=== PATIENT | female | born 1975 | race Caucasian/White ===

== ENCOUNTER 2019-11-01 00:30 | Inpatient (IN) | payer OTHER ==
[~2019-11-01 00:30] MED LIST: CITRIC ACID/SODIUM CITRATE 30 ML UNIT-DOSE CUP PO ONE; ELECTROLYTE-148 SOLN 500 ML IV ONE
[2019-11-01] MEDS ORDERED: OXYTOCIN 20 UNITS in 0.9% NS 20 UNIT/1,000 ML INFUS.BAG IV ONE ×2 (02:44→08:45)
[2019-11-01] MEDS ORDERED: morphine SULFATE/PF 0.5 MG/ML (2cc Syringe - QUVA) ONE (02:47)
[2019-11-01] MEDS ORDERED: SODIUM CHLORIDE 0.9% P/F 10 ML VIAL IJ ONE (02:59)
[2019-11-01] MEDS ORDERED: ceFAZolin SODIUM 1 GM VIAL ONE (02:59)
--- NOTE | 2019-11-01 03:01 | HP ---
Past Medical History - Primary Care Physician PCP:: Storm Simon - Admission Chief Complaint: 40 weeks, previous c/s . labor , sterlization, AMA History of Present Illness: 44 yo f g 2 p1001 40 weeks with previous c/s in labor , requesting repeat c/s and BTL ,risks associated with repeat c/s and BTL has discussed with patient History Source: Patient Limitations to Obtaining History: No Limitations - Past Medical History ...: 2 ...Para: 1 ... Weeks Gestation by Dates: 40 ...EDC by Sono: 11/01/19 - Past Surgical History Past Surgical History: Yes: Hx Myomectomy: No Hx Transabdominal Cerclage: No - Smoking History Smoking history: Never smoked - Alcohol/Substance Use Hx Alcohol Use: No History of Substance Use: reports: None - Social History Usual Living Arrangement: Yes: With Spouse History of Recent Travel: No Home Medications - Allergies Allergies/Adverse Reactions: Allergies Allergy/AdvReac Type Severity Reaction Status Date / Time No Known Allergies Allergy Verified 03/14/12 12:19 - Home Medications Home Medications: Ambulatory Orders -1 Capsule 1 tab PO DAILY 03/14/12 Acetaminophen [Tylenol .Regular Strength -] 650 mg PO Q4H PRN #0 tablet Ibuprofen [Motrin -] 600 mg PO Q4H PRN #0 tablet 03/19/12 Review of Systems - Review of Systems Constitutional: reports: No Symptoms Eyes: reports: No Symptoms HENT: reports: No Symptoms Neck: reports: No Symptoms Cardiovascular: reports: No Symptoms Respiratory: reports: No Symptoms Gastrointestinal: reports: No Symptoms Genitourinary: reports: No Symptoms Breasts: reports: No Symptoms Reported Musculoskeletal: reports: No Symptoms Integumentary: reports: No Symptoms Neurological: reports: No Symptoms Endocrine: reports: No Symptoms Hematology/Lymphatic: reports: No Symptoms Psychiatric: reports: No Symptoms Physical Exam - Maternity Vital Signs: Vital Signs Temperature 98.1 F 11/01/19 01:54 Pulse Rate 78 11/01/19 01:54 Respiratory Rate 20 11/01/19 01:54 Blood Pressure 131/77 11/01/19 01:54 O2 Sat by Pulse Oximetry (%) Constitutional: Yes: Well Nourished, No Distress, Calm Eyes: Yes: WNL, Conjunctiva Clear, EOM Intact HENT: Yes: WNL, Atraumatic, Normocephalic Neck: Yes: WNL, Supple, Trachea Midline Cardiovascular: Yes: WNL, Regular Rate and Rhythm Breast(s): Yes: WNL - Abdominal Exam/OB Fundal Height: 40 Number of Fetuses: Single Presentation: Vertex Contractions: Yes Regularity: Regular Intensity: Mod/Strong Monitor Mode: External Heart Rate Location: [facility] Category: I Accelerations: Non-Uniform Decelerations: None - Vaginal Exam/OB Amniotic Membrane Status: Intact Presentation: Vertex/Position - Physical Exam Musculoskeletal: Yes: WNL Extremities: Yes: WNL Edema: Yes Edema: LLE: Trace, RLE: Trace Deep Tendon Reflex Grade: Normal +2 ...Motor Strength: WNL Psychiatric: Yes: WNL Hemorrhage Risk Assessment - Risk Factors Medium Risk Factors: Yes: Prior , uterine surgery,or multiple laparotomies Risk Score: 1 Risk Level: Medium Risk Problem List - Problems (1) 40 weeks gestation of Code(s): Z3A.40 - 40 WEEKS GESTATION OF (2) Labor established Code(s): YVF4462 - (3) Advanced maternal age (AMA) in Code(s): BDY8013 - (4) Admission for sterilization Code(s): Z30.2 - ENCOUNTER FOR STERILIZATION Assessment/Plan repeat c/s ,BTL
[2019-11-01] MEDS ORDERED: OXYTOCIN 10 UNITS/ML VIAL ONE (03:31)
[2019-11-01] MEDS ORDERED: MIDAZOLAM HCL 2 MG/2 ML SINGLE DOSE VIAL ONE (03:31)
[2019-11-01] MEDS ORDERED: KETOROLAC TROMETHAMINE 30 MG/1 ML VIAL ONE (03:32)
[2019-11-01] MEDS ORDERED: ONDANSETRON 4 MG/2 ML VIAL IVPUSH PRN (03:48)
[2019-11-01] MEDS ORDERED: oxyCODONE HCL 5 MG TABLET PO PRN ×2 (04:17)
[2019-11-01] MEDS ORDERED: diphenhydrAMINE HCL 25 MG CAPSULE (FP) PO PRN (04:17)
[2019-11-01] MEDS ORDERED: IBUPROFEN 800 MG/8 ML IJ IVPB PRN (04:17)
[2019-11-01] MEDS ORDERED: BENZOCAINE 28 GM HEMORRHOIDAL OINTMENT PR PRN (04:17)
[2019-11-01] MEDS ORDERED: WITCH HAZEL 50% (TUCKS) 40 PAD/JAR PAD TP PRN (04:17)
[2019-11-01] MEDS ORDERED: IBUPROFEN 600 MG TABLET (FP) PO PRN (04:17)
[2019-11-01] MEDS ORDERED: BENZOCAINE 20% 57 GM BOTTLE TP PRN (04:17)
[2019-11-01] MEDS ORDERED: METHYLERGONOVINE MALEATE 0.2 MG/1 ML AMP IM PRN (04:17)
[2019-11-01] MEDS ORDERED: OXYTOCIN 20 UNITS in 0.9% NS 20 UNIT/1,000 ML INFUS.BAG IV SCH (04:30)
--- NOTE | 2019-11-01 04:33 | OP ---
Operative Note - Note: Operative Date: 11/01/19 Pre-Operative Diagnosis: 40 weeks ,previous c/s, labor , AMA, sterlization Operation: repeat LST c/s, RT salpingectomy Findings: live baby boy 9, mecomium stain af , LT tube and ovary not seen Surgeon: Storm Simon Printing Grey Cloth Tender: Mau Skaggs Anesthesiologist/TEST FIXTURE DESIGNER: Kristin Wu Anesthesia: Spinal Specimens Removed: placenta , RT tube Estimated Blood Loss (mls): 500 Drains & Tubes with Location: [place] Drains, Volume Out (mls): 200 Blood Volume Replaced (mls): 0 Fluid Volume Replaced (mls): 1,500 Operative Report Dictated: Yes
[2019-11-01 04:57] VITALS: BMI 30.8
[2019-11-01] MEDS: CEFAZOLIN 1 GM/D5W 1 GM/50 ML BAG IVPB SCH ×2 (09:36→17:43)
--- NOTE | 2019-11-01 10:28 | PN ---
Progress Note (short form) - Note Progress Note: Pt is s/p csection under spinal with duramorph. She is doing well, reporting minimal pain, no back pain, no headache. She has yet to ambulate; no anesthetic issues/complications noted.
[2019-11-01] MEDS: SIMETHICONE 80 MG TAB.CHEW (FP) PO PRN (17:43)
[2019-11-02] MEDS: ACETAMINOPHEN 325 MG TABLET (FP) PO PRN ×5 (00:13→21:45)
[2019-11-02] MEDS: IBUPROFEN 600 MG TABLET (FP) PO PRN ×5 (00:13→21:45)
[2019-11-02] MEDS ORDERED: BISACODYL 10 MG SUPP.RECT PR PRN (04:17)
[2019-11-02] MEDS: SIMETHICONE 80 MG TAB.CHEW (FP) PO PRN ×4 (08:13→22:10)
--- NOTE | 2019-11-02 09:07 | PN ---
Post Progress Note - Subjective Subjective: Patient without acute complaints. Reports tolerating oral intake without nausea or vomiting. Ambulating without dizziness. Denies fevers or chills. Pain well controlled with oral pain medication. Pumping/breast feeding without issue. Passing flatus, no BM. Post Day: 1 Type of Delivery: Repeat C/S Vital Signs: Vital Signs Temperature 98.4 F 11/02/19 02:00 Pulse Rate 77 11/02/19 02:00 Respiratory Rate 20 11/02/19 02:00 Blood Pressure 111/66 11/02/19 02:00 O2 Sat by Pulse Oximetry (%) 99 11/01/19 05:30 Breast Exam: Yes: Soft Uterus: Yes: Fundus Firm, Fundus below umbilicus, Non-tender Incision: Yes: Dressing dry and intact Abdomen/GI: Yes: Abdomen soft, Tolerating PO Lochia: Yes: Rubra Lochia, amount: Small Extremities: Yes: Calves non-tender Perineum: Yes: Intact Activity: Ambulating Assessment/Plan 44yo P2 s/p repeat LT C/S, doing well stable, afebrile. The pt is asymptomatic for s/sxs of anemia. care instructions reviewed. Continue routine postop care. Ambulation encouraged.
[2019-11-02 09:24] LABS: BASO % 0.5 % (0-2.0); EOS % 2.1 % (0-4.5); HEMATOCRIT 32.1 % (32.4-45.2); HEMOGLOBIN 10.3 GM/dL (10.7-15.3); LYMPH % 11.2 % (8-40); MCH 26.9 pg (25.7-33.7); MCHC 32.3 g/dl (32.0-36.0); MEAN CELL VOLUME 83.3 fl (80-96); MEAN PLT VOLUME 9.3 fl (7.5-11.1); MONO % 6.8 % (3.8-10.2); NEUT % 79.4 % (42.8-82.8); PLATELET COUNT 224 K/MM3 (134-434); RBC 3.85 M/mm3 (3.60-5.2); RDW 17.9 % (11.6-15.6); WHITE BLOOD COUNT 15.9 K/mm3 (4.0-10.0)
[2019-11-02] MEDS: ENOXAPARIN NA (PORCINE) 40 MG/0.4 ML DISP.SYRIN SQ SCH (09:55)
--- NOTE | 2019-11-02 13:32 | OP ---
DATE OF OPERATION: 11/01/2019 PREOPERATIVE DIAGNOSES: at 39 weeks. Previous section. Labor. Request of repeat section. Tubal ligation. PROCEDURES: Repeat low-segment, transverse section. Right salpingectomy. The left tube and ovary were missing. OPERATION: The patient was taken to the operating room and had adequate spinal anesthesia. Abdomen and perineum were prepped and draped. Pfannenstiel abdominal skin incision was made over previous incision. Abdominal wall was cut [id number]. Anterior peritoneum was exposed and incised. Upon entering abdominal cavity, bowels were packed away and with the lower blade of the [place] retractor in the pelvis, a low transverse uterine incision was made and incision extended laterally with bandage scissors. Amniotic sac was entered, light meconium. Baby boy was delivered from right occiput posterior position without any difficulty. Nasopharynx was suctioned and Apgars 9 and 9. Placenta was delivered manually. Uterine cavity was cleaned of all remaining tissue. Uterine incision was closed in 2 layers, first with 0 Biosyn continuous suture, the second layer with 0 Biosyn imbricating the first layer. Bladder flap was closed with 0 Biosyn continuous suture. Both tubes and ovaries were checked. The left tube and ovary were missing. The right ovary was normal. Right tube was grasped with a Dar clamp, and a Sejal was placed at the mesosalpinx area, and the tube was removed. Then, Sejal was replaced with 2-0 Biosyn interrupted suture. No active bleeding was seen. irrigated. All the lap, sponge, and instrument counts were correct. Peritoneum was closed with 0 Biosyn continuous suture. Muscle was brought together with interrupted suture of 0 Biosyn. Fascia was closed with 0 Biosyn continuous suture, subcutaneous fat with interrupted suture of 0 Biosyn, and the skin was closed with 3-0 Vicryl subcuticular continuous suture. Patient tolerated procedure well. Left the OR in good condition. SURGEON: Janey Simon MD VIDEO PRODUCTION INTERN: PEGGY Woodson ANESTHESIA: Spinal. ESTIMATED BLOOD LOSS: 500 mL. ANESTHESIOLOGIST: MD JANEY Dawkins M.D. [id number]
[2019-11-03] MEDS: SIMETHICONE 80 MG TAB.CHEW (FP) PO PRN ×5 (04:34→22:08)
[2019-11-03] MEDS: ACETAMINOPHEN 325 MG TABLET (FP) PO PRN ×5 (04:34→22:08)
[2019-11-03] MEDS: IBUPROFEN 600 MG TABLET (FP) PO PRN ×5 (04:34→22:08)
[2019-11-03] MEDS: ENOXAPARIN NA (PORCINE) 40 MG/0.4 ML DISP.SYRIN SQ SCH (09:12)
--- NOTE | 2019-11-03 17:07 | PN ---
Post Progress Note - Subjective Subjective: Patient without acute complaints. Reports tolerating oral intake without nausea or vomiting. Ambulating without dizziness. Denies fevers or chills. Pain well controlled with oral pain medication. Pumping/breast feeding without issue. Passing flatus, no BM. Post Day: 2 Type of Delivery: Repeat C/S Vital Signs: Vital Signs Temperature 98.6 F 11/03/19 09:41 Pulse Rate 82 11/03/19 09:41 Respiratory Rate 11/03/19 10:00 Blood Pressure 116/73 11/03/19 09:41 O2 Sat by Pulse Oximetry (%) 99 11/01/19 05:30 Breast Exam: Yes: Soft Uterus: Yes: Fundus Firm, Fundus below umbilicus, Non-tender Incision: Yes: Sutures intact Abdomen/GI: Yes: Abdomen soft, Passing flatus, Tolerating PO Lochia: Yes: Rubra Lochia, amount: Small Extremities: Yes: Calves non-tender, Edema Perineum: Yes: Intact Activity: Ambulating - Labs Labs: CBC WBC 15.9 K/mm3 (4.0-10.0) H 11/02/19 08:48 RBC 3.85 M/mm3 (3.60-5.2) 11/02/19 08:48 Hgb 10.3 GM/dL (10.7-15.3) L 11/02/19 08:48 Hct 32.1 % (32.4-45.2) L 11/02/19 08:48 MCV 83.3 fl (80-96) 11/02/19 08:48 MCH 26.9 pg (25.7-33.7) 11/02/19 08:48 MCHC 32.3 g/dl (32.0-36.0) 11/02/19 08:48 RDW 17.9 % (11.6-15.6) H 11/02/19 08:48 Plt Count 224 K/MM3 (134-434) 11/02/19 08:48 MPV 9.3 fl (7.5-11.1) 11/02/19 08:48 Absolute Neuts (auto) 12.6 K/mm3 (1.5-8.0) H 11/02/19 08:48 Neutrophils % 79.4 % (42.8-82.8) 11/02/19 08:48 Lymphocytes % 11.2 % (8-40) D 11/02/19 08:48 Monocytes % 6.8 % (3.8-10.2) 11/02/19 08:48 Eosinophils % 2.1 % (0-4.5) 11/02/19 08:48 Basophils % 0.5 % (0-2.0) 11/02/19 08:48 Nucleated RBC % 0 % (0-0) 11/02/19 08:48 Assessment/Plan 44yo P2 s/p repeat LT C/S, doing well stable, afebrile. Asymptomatic for anemia. Post op care reviewed. Continue routine care. Ambulation encouraged Rh positive, no RhoGam needed.
[2019-11-03] MEDS: ELECTROLYTE-148 SOLN 1,000 ML IV SCH ×2 (19:45→19:46)
[2019-11-03] MEDS: DEXTROSE 5%-LACTATED RINGERS 1,000 ML IV SCH (19:46)
[2019-11-03] MEDS: SENNOSIDES/DOCUSATE COMBO (SENNA PLUS) TABLET (UD) PO PRN (22:08)
[2019-11-04] MEDS: SIMETHICONE 80 MG TAB.CHEW (FP) PO PRN ×4 (06:18→22:06)
[2019-11-04] MEDS: ACETAMINOPHEN 325 MG TABLET (FP) PO PRN ×4 (06:18→22:06)
[2019-11-04] MEDS: IBUPROFEN 600 MG TABLET (FP) PO PRN ×4 (06:19→22:06)
[2019-11-04 08:02] LABS: BASO % 0.7 % (0-2.0); EOS % 3.6 % (0-4.5); HEMATOCRIT 28.4 % (32.4-45.2); HEMOGLOBIN 9.4 GM/dL (10.7-15.3); LYMPH % 15.2 % (8-40); MCH 27.3 pg (25.7-33.7); MCHC 33.1 g/dl (32.0-36.0); MEAN CELL VOLUME 82.4 fl (80-96); MEAN PLT VOLUME 8.8 fl (7.5-11.1); MONO % 7.5 % (3.8-10.2); PLATELET COUNT 248 K/MM3 (134-434); RBC 3.45 M/mm3 (3.60-5.2); RDW 18.5 % (11.6-15.6); WHITE BLOOD COUNT 12.9 K/mm3 (4.0-10.0)
[2019-11-04] MEDS: ENOXAPARIN NA (PORCINE) 40 MG/0.4 ML DISP.SYRIN SQ SCH (11:00)
--- NOTE | 2019-11-04 19:41 | PN ---
Post Progress Note - Subjective Subjective: Patient without acute complaints. She reports incisional pain R>L Reports tolerating oral intake without nausea or vomiting. Ambulating without dizziness. Denies fevers or chills. Pain well controlled with oral pain medication. Pumping/breast feeding without issue. Passing flatus and had BM. Post Day: 3 Type of Delivery: Repeat C/S Vital Signs: Vital Signs Temperature 97.9 F 11/04/19 09:00 Pulse Rate 77 11/04/19 09:00 Respiratory Rate 18 11/04/19 09:00 Blood Pressure 114/69 11/04/19 09:00 O2 Sat by Pulse Oximetry (%) 99 11/01/19 05:30 Breast Exam: Yes: Soft Uterus: Yes: Fundus Firm, Fundus below umbilicus, Non-tender Incision: Yes: Sutures intact, Other (intact, clean, dry, no infection) Abdomen/GI: Yes: Abdomen soft, Passing flatus, Tolerating PO Lochia: Yes: Rubra Lochia, amount: Small Extremities: Yes: Calves non-tender Perineum: Yes: Intact Activity: Ambulating - Labs Labs: CBC WBC 12.9 K/mm3 (4.0-10.0) H 11/04/19 07:25 RBC 3.45 M/mm3 (3.60-5.2) L 11/04/19 07:25 Hgb 9.4 GM/dL (10.7-15.3) L 11/04/19 07:25 Hct 28.4 % (32.4-45.2) L 11/04/19 07:25 MCV 82.4 fl (80-96) 11/04/19 07:25 MCH 27.3 pg (25.7-33.7) 11/04/19 07:25 MCHC 33.1 g/dl (32.0-36.0) 11/04/19 07:25 RDW 18.5 % (11.6-15.6) H 11/04/19 07:25 Plt Count 248 K/MM3 (134-434) 11/04/19 07:25 MPV 8.8 fl (7.5-11.1) 11/04/19 07:25 Absolute Neuts (auto) 9.5 K/mm3 (1.5-8.0) H 11/04/19 07:25 Neutrophils % 73.0 % (42.8-82.8) 11/04/19 07:25 Lymphocytes % 15.2 % (8-40) D 11/04/19 07:25 Monocytes % 7.5 % (3.8-10.2) 11/04/19 07:25 Eosinophils % 3.6 % (0-4.5) 11/04/19 07:25 Basophils % 0.7 % (0-2.0) 11/04/19 07:25 Nucleated RBC % 0 % (0-0) 11/04/19 07:25 Assessment/Plan 44yo P2 now POD 3# s/p repeat LT C/S, doing well stable, afebrile. Asymptomatic for anemia. Post op care reviewed. Continue routine care. Ambulation encouraged Pain mgt options reviewed. Discharge instructions reviewed.
--- NOTE | 2019-11-04 19:44 | DS ---
Physical Exam-ALTERATIONS EXPERT Vital Signs: Vital Signs Temperature 97.9 F 11/04/19 09:00 Pulse Rate 77 11/04/19 09:00 Respiratory Rate 18 11/04/19 09:00 Blood Pressure 114/69 11/04/19 09:00 O2 Sat by Pulse Oximetry (%) 99 11/01/19 05:30 Constitutional: Yes: Well Nourished, No Distress, Calm Eyes: Yes: WNL, Conjunctiva Clear, EOM Intact HENT: Yes: WNL, Atraumatic, Normocephalic Neck: Yes: WNL, Supple, Trachea Midline Cardiovascular: Yes: WNL, Regular Rate and Rhythm Respiratory: Yes: WNL, Regular, CTA Bilaterally Gastrointestinal: Yes: WNL, Normal Bowel Sounds, Soft ...Rectal Exam: Yes: Deferred Renal/: Yes: WNL Internal Exam Deferred: Yes ....Post : Yes: Uterus firm, Uterus non-tender, Slight lochia rubra Breast(s): Yes: WNL Musculoskeletal: Yes: WNL Extremities: Yes: WNL Edema: Yes Edema: LLE: 1+, RLE: 1+ Integumentary: Yes: WNL Wound/Incision: Yes: Clean/Dry, Well Approximated, Sutures Intact, Steri Strips , Open to air Neurological: Yes: WNL, Alert, Oriented ...Motor Strength: WNL Psychiatric: Yes: WNL, Alert, Oriented Labs: CBC, BMP 11/04/19 07:25 Delivery - Delivery Section: Repeat, Low Flap Transverse Type of Anesthesia: Spinal Episiotomy/Laceration: None EBL (cc): 500 Delivery, Single - Stages of Labor Date 1st Stage Initiatied: 10/31/19 Time 1st Stage Initiated: 14:00 Date of Delivery: 11/01/19 Time of Delivery: 03:27 Time Placenta Delivered: 03:28 Placenta: Yes: Expressed, Normal Configuration - Condition of Infant Plumbing Engineer/Appeals Rn Present: Yes Name: Flash Flores Infant Gender: Male Weight: 3.43 kg Position: Right, OP Total Hours ROM (Hrs/Mins): 2mins. - 1 Minute Total Score: 9 5 Minutes Total Score: 9 - Feeding Plan Initial Plan: Elected not to breastfeed exclusively throughout hospitalization Benefits of Exclusively reinforced: Yes Discharge Summary Problems reviewed: Yes Reason For Visit: Current Active Problems 40 weeks gestation of (Acute) Admission for sterilization (Acute) Advanced maternal age (AMA) in (Acute) Labor established (Acute) Procedures: Principal: Repeat LT C/S Hospital Course: Normal postop and recovery. Goals: Pain control. Safe postop and recovery Condition: Good - Instructions Diet, Activity, Other Instructions: Physical activity Resume your normal everyday activity as tolerated no heavy lifting or exercise until seen by your surgeon. You may walk unlimited adelaida of and climb stairs. You may resume driving the car when you feel safe and comfortable behind the wheel. No sexual activity as instructed. Wound care If you have a bandage, leave it on, and keep dry for 48-72 hours. After that time discard the outer bandage. If they are tapes on the skin under the out of bandage leave them in place. They will peel off in the next 7 to 10 days. Do Not Peel them off. You may shower the day after surgery. If there are tapes present on the skin, you may shower over them. Diet There are no dietary restrictions. Eat healthy, high-fiber foods. Drink 6 to 8 glasses of liquid each day. This will assist in keeping your bowels are regular. Pain management You may take Tylenol or acetaminophen or Ibuprofen (for example, Motrin, Advil etc.) from my pain prescription medication is ordered should be taken as prescribed for moderate to severe pain. Call MD for any of the following: Severe pain not relieved by medication Fever of 101 or higher Excessive bleeding or drainage on dressing Inability to urinate Referrals: Dhruv Wright MD [Staff Physician] - Disposition: HOME - Home Medications Comprehensive Discharge Medication List: Ambulatory Orders -1 Capsule 1 tab PO DAILY 03/14/12 Ibuprofen [Motrin -] 600 mg PO QID PRN #28 tablet 11/03/19 Oxycodone HCl/Acetaminophen [Percocet 5-325 mg Tablet -] 1 - 2 tab PO Q6H PRN # 20 tab MDD 8 11/03/19 Prescription Drug Monitoring Program (I-STOP) results: I-STOP not reviewed
[2019-11-04] MEDS: SENNOSIDES/DOCUSATE COMBO (SENNA PLUS) TABLET (UD) PO PRN (22:06)
--- NOTE | 2019-11-05 07:43 | PN ---
Progress Note (short form) - Note Progress Note: pod 4 s/p repeat c/s. doing well, no c/o CBC, BMP 11/04/19 07:25 Last Vital Signs Temp Pulse Resp BP Pulse Ox 98.4 F 86 20 121/74 99 11/04/19 22:00 11/04/19 22:00 11/04/19 22:00 11/04/19 22:00 11/01/19 05:30 abdomen soft, no distension, no cva incision dry, clean ,healing well no calf tenderness plan d/c home, follow up office 1 week instruction given Problem List - Problems (1) 40 weeks gestation of Code(s): Z3A.40 - 40 WEEKS GESTATION OF (2) Labor established Code(s): YCK1322 - (3) Advanced maternal age (AMA) in Code(s): QYR9931 - (4) Admission for sterilization Code(s): Z30.2 - ENCOUNTER FOR STERILIZATION
[2019-11-05] MEDS: ACETAMINOPHEN 325 MG TABLET (FP) PO PRN ×2 (08:03→11:40)
[2019-11-05] MEDS: SIMETHICONE 80 MG TAB.CHEW (FP) PO PRN ×2 (08:03→11:40)
[2019-11-05] MEDS: IBUPROFEN 600 MG TABLET (FP) PO PRN ×2 (08:03→11:40)
[2019-11-05 09:24] VITALS: BP 116/79; PULSE 76; TEMP 97.7
[2019-11-05] MEDS: ENOXAPARIN NA (PORCINE) 40 MG/0.4 ML DISP.SYRIN SQ SCH (09:43)
--- NOTE | 2019-11-08 13:34 | PATH ---
Surgical Pathology Report Patient Name: BALTA HOLCOMB [facility]. Rec. #: [id number] /Age/Gender: 1975 (Age: 44) / F Account: [id number] Location: [facility] OBS/INTERIM CONTROLLER Taken: 11/01/2019 Received: 11/01/2019 Reported: 11/08/2019 Physicians: Storm Simon M.D. Specimen(s) Received A: PLACENTA B: RIGHT FALLOPIAN TUBE Clinical History , 40.1 weeks Final Diagnosis A. PLACENTA: THIRD TRIMESTER PLACENTA WITH INCREASED PIGMENT LADEN MACROPHAGES WITHIN THE AMNION AND CHORION, CONSISTENT WITH MECONIUM STAINING. TRIVASCULAR CORD. B. PORTION OF RIGHT FALLOPIAN TUBE, RESECTION: COMPLETE CROSS SECTION OF THE FALLOPIAN TUBE LUMEN IDENTIFIED. Electronically Signed Javier Deutsch M.D. Gross Description A. The specimen is received fresh labeled placenta and is a 497 gram, 22.0 x 15.0 x 2.7 cm. placenta with attached membranes and umbilical cord. The attached membranes are martins green, meconium stained, translucent with focal opacities and insert marginally. The umbilical cord measures 18 cm. in length and averages 1 cm. in diameter. The cord inserts eccentrically, 3 cm. to the nearest margin. No true knots or strictures are identified. Cut surface of the umbilical cord reveals 3 vessels. The surface is mendoza green, meconium stained with minimal fibrin deposition and appropriate caliber vessels. The maternal surface is red-brown with focal defects. Sectioning reveals red-brown, spongy parenchyma. No lesions are identified. Unload Associate sections are submitted in three cassettes as follows: 1- membrane rolls and umbilical cord; 2-3- full thickness sections of placenta. B. received in formalin labeled "portion of right fallopian tube," is a 2.1 cm in length portion of fallopian tube. No fimbria are present. The outer surface is martins-mendoza and smooth. Sectioning reveals an unremarkable lumen. Unload Associate sections are submitted in one cassette. 11/05/201911/05/2019
== END 2019-11-05 12:40 | disposition home or self-care (01) | DRG 788 ==
LOC: JLDR 00:30 → J3W 06:42
PROVIDERS: ADMIT Obstetrics & Gynecology; ATTEND Obstetrics & Gynecology
PROC: 10D00Z1 Extraction of Products of Conception, Low, Open Approach (ICD-10-PCS; principal; 2019-11-01)
DX: O76 Abnormality in fetal heart rate and rhythm complicating labor and delivery (principal); O77.0 Labor and delivery complicated by meconium in amniotic fluid; Z3A.39 39 weeks gestation of pregnancy; Z37.0 Single live birth
CPT/HCPCS: 36415; 36600; 82803; 85025; 88302-TC; 88307-TC